=== PATIENT | female | born 1975 | race Caucasian/White ===

== ENCOUNTER 2019-01-06 11:45 | Emergency (ER) | payer MEDICAID ==
[~2019-01-06] VITALS: Ht 165.1 cm; Wt 84.4 kg
[2019-01-06 12:00] VITALS: BP 127/77
--- NOTE | 2019-01-06 13:06 | NUR ---
PATIENT PRESENTS TO ED WITH c/o vertigo worse with sudden movements; severe nausea ; denies recent injury/trauma full clear speech, ambulatory with steady gait--. DENIES N/V/D; SKIN IS PINK/WARM/DRY; AAOX4 WITH EVEN AND STEADY GAIT; LUNGS CLEAR BL; HR EVEN AND REGULAR; PT DENIES ANY FEVER, CP, SOB, OR COUGH AT THIS TIME; PATIENT STATES PAIN OF 0/10 AT THIS TIME; VSS; PATIENT POSITIONED FOR COMFORT; HOB ELEVATED; BEDRAILS UP X2; BED DOWN. ER MD MADE AWARE OF PT STATUS.
[2019-01-06] MEDS ORDERED: MECLIZINE 25 MG TAB PO ONE (13:40)
[2019-01-06] MEDS ORDERED: ONDANSETRON 4 MG ODT PO ONE (13:40)
[2019-01-06 14:54] VITALS: BP 117/76
--- NOTE | 2019-01-06 14:59 | NUR ---
Patient discharged with v/s stable. Written and verbal after care instructions given and explained. Patient alert, oriented and verbalized understanding of instructions. Ambulatory with steady gait. All questions addressed prior to discharge. ID band removed. Patient advised to follow up with PMD. Rx of MECLIZINE AND ZOFRAN given. Patient educated on indication of medication including possible reaction and side effects. Opportunity to ask questions provided and answered.
== END 2019-01-06 14:59 | disposition home or self-care (01) ==
LOC: MED 11:45
DX: R42 Dizziness and giddiness (principal); Z98.890 Other specified postprocedural states
CPT/HCPCS: 81002; 81025; 99283; J8597; Q0162

== ENCOUNTER 2019-05-04 13:59 | Emergency (ER) | payer MEDICAID, OTHER ==
[~2019-05-04] VITALS: Ht 165.1 cm; Wt 83.9 kg
[2019-05-04 14:04] VITALS: BP 122/84
--- NOTE | 2019-05-04 14:20 | NUR ---
DR FULLER AT BEDSIDE
--- NOTE | 2019-05-04 14:25 | NUR ---
44 Y FEMALE C/O LOWER BACK PAIN, DYSURIA, VOMITING AND DIARRHEA SINCE YESTERDAY. REPORTS 3 EPISODES OF EMESIS. PT STATES SHE CAN'T KEEP ANY FOOD OR WATER DOWN. LAST BM TODAY. PAIN /10. BOWEL SOUNDS ACTIVE IN ALL 4 QUADRANTS. ABDOMEN SOFT AND ROUND. VSS AT THIS TIME. PT AA0X4. BED IS DOWN, LOCKED, BED RAIL X 1, ERMD TO SEE PT. HX OF KINDNEY DISEASE NO MEDS.
--- NOTE | 2019-05-04 14:31 | NUR ---
LAB AT BEDSIDE
[2019-05-04] MEDS ORDERED: cefTRIAXone 1,000 MG VIAL ONE (14:43)
--- NOTE | 2019-05-04 14:50 | NUR ---
22 G L FOREARM INSERTED. ROCEPHIN STARTED
[2019-05-04 14:51] LABS: APPEARANCE,URINE SL CLOUDY (CLEAR); BILIRUBIN,URINE NEGATIVE (NEGATIVE); BLOOD, URINE TRACE-I (NEGATIVE); COLOR,URINE YELLOW (YELLOW); LEUKOCYTE ESTERASE ,URINE NEGATIVE (NEGATIVE); NITRITE, URINE NEGATIVE (NEGATIVE); PH,URINE 7.5 (5.0-9.0); UGLUCOSE NEGATIVE (NEGATIVE)
[2019-05-04 14:58] LABS: ANION GAP 9.7 (8-16); CARBON DIOXIDE 30.1 mmol/L (21-32); CREATININE 0.6 mg/dL (0.6-1.3); POTASSIUM 3.8 mmol/L (3.5-5.1)
[2019-05-04 15:00] LABS: RBC,URINE 0-5 /HPF (0-5); WBC,URINE 0-5 /HPF (0-5)
[2019-05-04 15:04] LABS: ALBUMIN 3.7 g/dL (3.4-5.0); TOTAL BILIRUBIN 0.2 mg/dL (0.0-1.0)
[2019-05-04 16:19] VITALS: BP 126/80
--- NOTE | 2019-05-04 16:19 | NUR ---
Patient discharged with v/s stable. Written and verbal after care instructions given and explained. Patient alert, oriented and verbalized understanding of instructions. Ambulatory with steady gait. All questions addressed prior to discharge. ID band removed. Patient advised to follow up with PMD. Rx of ZOFRAN, CEPHALEXIN given. Patient educated on indication of medication including possible reaction and side effects. Opportunity to ask questions provided and answered. PAIN 3/10 AT DISCHARGE.
[2019-05-04 17:27] LABS: HEMATOCRIT 28.3 % (36-48); HEMOGLOBIN 8.6 g/dL (12.0-16.0); RED BLOOD CELL COUNT(AUTO) 4.22 MIL/uL (4.20-5.40)
[2019-05-04 17:28] LABS: EOSINOPHILS # (AUTO) 0.1 K/uL (0-0.4); EOSINOPHILS % (AUTO) 1.1 % (0.0-4.0); LYMPHOCYTES # (AUTO) 1.8 K/uL (2.5-16.5); MEAN CORPUSCULAR HGB CONC 31 g/dL (33-37); MONOCYTES # (AUTO) 0.7 K/uL (0.8-1.0); MONOCYTES % (AUTO) 7.7 % (1.7-9.3); NEUTROPHILS % (AUTO) 70.2 % (42.2-75.2); PLATELET COUNT (AUTO) 407 K/uL (140-450); RED CELL DISTRIBUTION WIDTH 19.8 % (11.6-13.7)
[2019-05-04 17:29] LABS: MEAN CORPUSCULAR HEMOGLOBIN 20 pg (27-31); WHITE BLOOD COUNT (AUTO) 8.6 K/uL (4.8-10.8)
== END 2019-05-04 16:19 | disposition home or self-care (01) ==
LOC: MED 13:59
DX: N12 Tubulo-interstitial nephritis, not specified as acute or chronic (principal); Q61.3 Polycystic kidney, unspecified
CPT/HCPCS: 36415; 80053; 81001; 81025; 83605; 85025; 87040; 87086; 96365; 99283; J0696; J7060

== ENCOUNTER 2019-08-25 08:37 | Emergency (ER) | payer OTHER ==
[~2019-08-25] VITALS: Ht 165.1 cm; Wt 80.7 kg
[2019-08-25 08:44] VITALS: BP 132/85
--- NOTE | 2019-08-25 08:44 | NUR ---
Patient ambulated to bed 8. RN evaluating patient at bedside.
--- NOTE | 2019-08-25 08:56 | NUR ---
Dr. Alcantar evaluating patient at bedside.
--- NOTE | 2019-08-25 09:20 | NUR ---
HOSPITAL GOWN WAS OFFERED AND ENCOURAGED PT TO CHANGE IT. PT IS WAITING FOR US. QUIETLY.
[2019-08-25 09:38] LABS: BASOPHILS % (AUTO) 0.6 % (0.0-2.0); EOSINOPHILS # (AUTO) 0.1 K/uL (0-0.4); EOSINOPHILS % (AUTO) 2.2 % (0.0-4.0); HEMATOCRIT 33.1 % (36-48); HEMOGLOBIN 10.2 g/dL (12.0-16.0); LYMPHOCYTES # (AUTO) 1.5 K/uL (2.5-16.5); LYMPHOCYTES % (AUTO) 32.6 % (20.5-51.1); MEAN CORPUSCULAR HEMOGLOBIN 23 pg (27-31); MEAN CORPUSCULAR HGB CONC 31 g/dL (33-37); MEAN CORPUSCULAR VOLUME 73.7 fL (80-94); MONOCYTES # (AUTO) 0.2 K/uL (0.8-1.0); MONOCYTES % (AUTO) 4.3 % (1.7-9.3); NEUTROPHILS # (AUTO) 2.8 K/uL (1.8-7.7); NEUTROPHILS % (AUTO) 60.3 % (42.2-75.2); PLATELET COUNT (AUTO) 274 K/uL (140-450); RED BLOOD CELL COUNT(AUTO) 4.49 MIL/uL (4.20-5.40); RED CELL DISTRIBUTION WIDTH 19.6 % (11.6-13.7); WHITE BLOOD COUNT (AUTO) 4.6 K/uL (4.8-10.8)
[2019-08-25 09:45] LABS: ANION GAP 8.7 (8-16); CARBON DIOXIDE 28.1 mmol/L (21-32); CREATININE 0.6 mg/dL (0.6-1.3); POTASSIUM 3.8 mmol/L (3.5-5.1)
[2019-08-25 09:49] LABS: APPEARANCE,URINE HAZY (CLEAR); BILIRUBIN,URINE NEGATIVE (NEGATIVE); BLOOD, URINE 2+ (NEGATIVE); COLOR,URINE YELLOW (YELLOW); LEUKOCYTE ESTERASE ,URINE NEGATIVE (NEGATIVE); NITRITE, URINE NEGATIVE (NEGATIVE); PH,URINE 7.5 (5.0-9.0); UGLUCOSE NEGATIVE (NEGATIVE)
[2019-08-25 09:51] LABS: ALBUMIN 3.6 g/dL (3.4-5.0); TOTAL BILIRUBIN 0.3 mg/dL (0.0-1.0)
[2019-08-25 10:01] LABS: FINE GRANULAR CASTS,URINE 0-10 /LPF (None Seen); RBC,URINE 0-5 /HPF (0-5); WBC,URINE 0-5 /HPF (0-5)
--- NOTE | 2019-08-25 11:52 | NUR ---
Patient discharged with v/s stable. Written and verbal after care instructions given and explained. Patient alert, oriented and verbalized understanding of instructions. Ambulatory with steady gait. All questions addressed prior to discharge. ID band removed. Patient advised to follow up with PMD. Rx of KFLEX given. Patient educated on indication of medication including possible reaction and side effects. Opportunity to ask questions provided and answered.
[2019-08-25 11:54] VITALS: BP 132/75
== END 2019-08-25 11:52 | disposition home or self-care (01) ==
LOC: MED 08:37
DX: N39.0 Urinary tract infection, site not specified (principal); R03.0 Elevated blood-pressure reading, without diagnosis of hypertension; D64.9 Anemia, unspecified; Z98.890 Other specified postprocedural states
CPT/HCPCS: 36415; 76770; 80053; 81001; 81025; 85025; 87086; 99284; Q0092

== ENCOUNTER 2020-03-24 23:50 | Emergency (ER) | payer OTHER ==
[~2020-03-24] VITALS: Ht 165.1 cm; Wt 81.6 kg
[2020-03-24 23:57] VITALS: BP 152/87
[2020-03-25 01:17] LABS: APPEARANCE,URINE SL CLOUDY (CLEAR); BILIRUBIN,URINE NEGATIVE (NEGATIVE); BLOOD, URINE 2+ (NEGATIVE); COLOR,URINE YELLOW (YELLOW); LEUKOCYTE ESTERASE ,URINE NEGATIVE (NEGATIVE); NITRITE, URINE NEGATIVE (NEGATIVE); PH,URINE 5.5 (5.0-9.0); UGLUCOSE NEGATIVE (NEGATIVE)
--- NOTE | 2020-03-25 01:17 | NUR ---
PT HAS FLANK PAIN X 2 DAYS WITH INCREASE TONIGHT, 04/27. HX OF POLYCYSTIC KIDNEY DISEASE. PAIN RADIATING IN TO LUQ, DENIES N/V. BED IN LOWEST POSITION AND SIDERAIL UP X 1 NKA NO MEDS MED HX - POLYCYSTIC KIDNSY DISEASE
[2020-03-25 01:41] LABS: WBC,URINE 0-5 /HPF (0-5)
[2020-03-25 01:44] VITALS: BP 152/87
--- NOTE | 2020-03-25 01:46 | NUR ---
Patient discharged with v/s stable. Written and verbal after care instructions given and explained. Patient alert, oriented and verbalized understanding of instructions. Ambulatory with steady gait. All questions addressed prior to discharge. ID band removed. Patient advised to follow up with PMD. Rx of KEFLEX AND PHENAZOPYDRINE given. Patient educated on indication of medication including possible reaction and side effects. Opportunity to ask questions provided and answered.
== END 2020-03-25 01:46 | disposition home or self-care (01) ==
LOC: MED 23:50
DX: N39.0 Urinary tract infection, site not specified (principal); Z98.890 Other specified postprocedural states
CPT/HCPCS: 81001; 81002; 81025; 87086; 99283

== ENCOUNTER 2020-05-11 23:31 | Emergency (ER) | payer OTHER ==
[~2020-05-11] VITALS: Ht 165.1 cm; Wt 79.8 kg
[2020-05-11 23:38] VITALS: BP 128/80
[2020-05-11] MEDS ORDERED: KETOROLAC 60 MG/2 ML VIAL IM ONE (23:45)
[2020-05-12 00:07] VITALS: BP 128/80
== END 2020-05-12 00:07 | disposition home or self-care (01) ==
LOC: MED 23:31
DX: I88.9 Nonspecific lymphadenitis, unspecified (principal); Z87.448 Personal history of other diseases of urinary system
CPT/HCPCS: 81002; 81025; 96372; 99283; J1885

== ENCOUNTER 2020-08-02 18:44 | Emergency (ER) | payer OTHER ==
[~2020-08-02] VITALS: Ht 165.1 cm; Wt 80.7 kg
[2020-08-02 18:49] VITALS: BP 121/86
--- NOTE | 2020-08-02 19:00 | NUR ---
45 year old female coming in flank pain x 2 days. states that the flank pain is on and off. reports more pain on left region of the flank. reports slight discomfort or hesitancy when urinating. denies any other s/sx. denies any injury or trauma. awaiting MSE. pmhx: polycystic kidney disease. aliyah
--- NOTE | 2020-08-02 19:00 | NUR ---
ambulated to bed 12 with steady gait.
[2020-08-02 19:57] LABS: BASOPHILS % (AUTO) 0.8 % (0.0-2.0); EOSINOPHILS # (AUTO) 0.2 K/uL (0-0.4); EOSINOPHILS % (AUTO) 2.4 % (0.0-4.0); HEMATOCRIT 38.1 % (36-48); HEMOGLOBIN 12.6 g/dL (12.0-16.0); LYMPHOCYTES # (AUTO) 2.3 K/uL (2.5-16.5); LYMPHOCYTES % (AUTO) 36.4 % (20.5-51.1); MEAN CORPUSCULAR HEMOGLOBIN 29 pg (27-31); MEAN CORPUSCULAR HGB CONC 33 g/dL (33-37); MEAN CORPUSCULAR VOLUME 88.5 fL (80-94); MONOCYTES # (AUTO) 0.5 K/uL (0.8-1.0); MONOCYTES % (AUTO) 7.7 % (1.7-9.3); NEUTROPHILS # (AUTO) 3.3 K/uL (1.8-7.7); NEUTROPHILS % (AUTO) 52.7 % (42.2-75.2); PLATELET COUNT (AUTO) 218 K/uL (140-450); RED CELL DISTRIBUTION WIDTH 15.2 % (11.6-13.7); WHITE BLOOD COUNT (AUTO) 6.2 K/uL (4.8-10.8)
[2020-08-02 20:12] LABS: ALBUMIN 3.5 g/dL (3.4-5.0); ANION GAP 12.1 (8-16); CARBON DIOXIDE 26.5 mmol/L (21-32); POTASSIUM 3.6 mmol/L (3.5-5.1); TOTAL BILIRUBIN 0.1 mg/dL (0.0-1.0)
--- NOTE | 2020-08-02 20:48 | NUR ---
PA MAICO WITH PT
[2020-08-02 21:15] VITALS: BP 121/86
--- NOTE | 2020-08-02 21:15 | NUR ---
Patient discharged with v/s stable. Written and verbal after care instructions given and explained. Patient alert, oriented and verbalized understanding of instructions. Ambulatory with steady gait. All questions addressed prior to discharge. ID band removed. Patient advised to follow up with PMD. Rx of ACETAMINOPHEN, AND NITROFURANTOIN given. Patient educated on indication of medication including possible reaction and side effects. Opportunity to ask questions provided and answered.
--- NOTE | 2020-08-02 21:15 | NUR ---
IV removed, catheter intact and site benign. Applied folded 4x4 gauze and tape to stop bleeding.
== END 2020-08-02 21:15 | disposition home or self-care (01) ==
LOC: MED 18:44
DX: M54.9 Dorsalgia, unspecified (principal); R30.0 Dysuria; R03.0 Elevated blood-pressure reading, without diagnosis of hypertension
CPT/HCPCS: 36415; 80053; 81002; 81025; 85025; 87086; 99283

== ENCOUNTER 2021-02-21 14:10 | Emergency (ER) | payer BC, OTHER ==
[~2021-02-21] VITALS: Ht 165.1 cm; Wt 77.1 kg
[2021-02-21 14:17] VITALS: BP 140/83
--- NOTE | 2021-02-21 14:40 | NUR ---
PATIENT AMBULATED TO BED 05
--- NOTE | 2021-02-21 15:00 | NUR ---
45 YEAR OLD FEMALE COMPLAINS OF PAINFUL URINATION X 3 DAYS. PT STATES THAT SHE HAS LOWER ABDOMINAL PAIN THAT RADIATES TO LOWER BACK. PT DENIES BLOOD IN URINE. PT AOX4, BREATHING EVEN AND UNLABORED, SKIN WARM AND DRY. BED IN LOWEST POSITION, LOCKED, BED RAIL UPX1. PMH - POLYCYSTIC KIDNEY DISEASE ALLERGIES - NKA
[2021-02-21 15:06] LABS: APPEARANCE,URINE CLEAR (CLEAR); BILIRUBIN,URINE NEGATIVE (NEGATIVE); BLOOD, URINE 2+ (NEGATIVE); COLOR,URINE YELLOW (YELLOW); LEUKOCYTE ESTERASE ,URINE NEGATIVE (NEGATIVE); NITRITE, URINE NEGATIVE (NEGATIVE); UGLUCOSE NEGATIVE (NEGATIVE)
[2021-02-21 15:07] LABS: BASOPHILS % (AUTO) 0.4 % (0.0-2.0); EOSINOPHILS # (AUTO) 0.1 K/uL (0-0.4); HEMATOCRIT 37.6 % (36-48); HEMOGLOBIN 12.5 g/dL (12.0-16.0); LYMPHOCYTES # (AUTO) 1.8 K/uL (2.5-16.5); LYMPHOCYTES % (AUTO) 31.7 % (20.5-51.1); MEAN CORPUSCULAR HEMOGLOBIN 30 pg (27-31); MEAN CORPUSCULAR HGB CONC 33 g/dL (33-37); MEAN CORPUSCULAR VOLUME 89.3 fL (80-94); MONOCYTES # (AUTO) 0.5 K/uL (0.8-1.0); MONOCYTES % (AUTO) 8.4 % (1.7-9.3); NEUTROPHILS # (AUTO) 3.2 K/uL (1.8-7.7); NEUTROPHILS % (AUTO) 57.5 % (42.2-75.2); PLATELET COUNT (AUTO) 228 K/uL (140-450); RED BLOOD CELL COUNT(AUTO) 4.22 MIL/uL (4.20-5.40); WHITE BLOOD COUNT (AUTO) 5.6 K/uL (4.8-10.8)
[2021-02-21 15:13] LABS: RBC,URINE 11-20 (MOD) /HPF (0-5); WBC,URINE 0-5 /HPF (0-5)
[2021-02-21 15:18] LABS: ALBUMIN 3.5 g/dL (3.4-5.0); ANION GAP 7.6 (8-16); CARBON DIOXIDE 31.5 mmol/L (21-32); CREATININE 0.6 mg/dL (0.6-1.3); POTASSIUM 4.1 mmol/L (3.5-5.1); TOTAL BILIRUBIN 0.2 mg/dL (0.0-1.0)
[2021-02-21] MEDS ORDERED: ONDA4TAB PO (16:19)
[2021-02-21] MEDS ORDERED: IBUP-2213 PO (16:19)
[2021-02-21] MEDS ORDERED: ACET-9527 PO (16:19)
[2021-02-21 16:40] VITALS: BP 140/83
--- NOTE | 2021-02-21 16:40 | NUR ---
Patient discharged with v/s stable. Written and verbal after care instructions about polycystic kidney disease, flank pain given and explained. Patient alert, oriented and verbalized understanding of instructions. Ambulatory with steady gait. All questions addressed prior to discharge. ID band removed. Patient advised to follow up with PMD. Rx of hydrocodone, ibuprofen, zofran given. Patient educated on indication of medication including possible reaction and side effects. Pt understands not to drive on hydrocodone. Opportunity to ask questions provided and answered.
== END 2021-02-21 16:40 | disposition home or self-care (01) ==
LOC: MED 14:10
DX: Q61.3 Polycystic kidney, unspecified (principal); R31.9 Hematuria, unspecified; R10.9 Unspecified abdominal pain; R03.0 Elevated blood-pressure reading, without diagnosis of hypertension; Z79.899 Other long term (current) drug therapy
CPT/HCPCS: 36415; 80053; 81001; 81025; 85025; 99284

== ENCOUNTER 2021-09-26 21:34 | Emergency (ER) | payer OTHER ==
[~2021-09-26] VITALS: Ht 165.1 cm; Wt 79.8 kg
[~2021-09-26 21:34] MED LIST: ACET-9527 PO; IBUP-2213 PO; ONDA4TAB PO
[2021-09-26 21:47] VITALS: BP 136/65
--- NOTE | 2021-09-26 21:55 | NUR ---
TO LOBBY FOLLOWING TRIAGE
--- NOTE | 2021-09-26 22:20 | NUR ---
PT TAKEN TO BED #5
[2021-09-26 22:57] LABS: BASOPHILS % (AUTO) 0.4 % (0.0-2.0); EOSINOPHILS # (AUTO) 0.2 K/uL (0-0.4); HEMATOCRIT 34.9 % (36-48); HEMOGLOBIN 11.5 g/dL (12.0-16.0); LYMPHOCYTES # (AUTO) 2.1 K/uL (2.5-16.5); LYMPHOCYTES % (AUTO) 31.7 % (20.5-51.1); MEAN CORPUSCULAR HEMOGLOBIN 27 pg (27-31); MEAN CORPUSCULAR HGB CONC 33 g/dL (33-37); MEAN CORPUSCULAR VOLUME 82.6 fL (80-94); MONOCYTES # (AUTO) 0.5 K/uL (0.8-1.0); NEUTROPHILS # (AUTO) 3.8 K/uL (1.8-7.7); NEUTROPHILS % (AUTO) 56.9 % (42.2-75.2); PLATELET COUNT (AUTO) 257 K/uL (140-450); RED BLOOD CELL COUNT(AUTO) 4.23 MIL/uL (4.20-5.40); RED CELL DISTRIBUTION WIDTH 15.5 % (11.6-13.7); WHITE BLOOD COUNT (AUTO) 6.6 K/uL (4.8-10.8)
[2021-09-26 23:13] LABS: ALBUMIN 3.6 g/dL (3.4-5.0); ANION GAP 11.7 (8-16); CREATININE 0.7 mg/dL (0.6-1.3); POTASSIUM 3.7 mmol/L (3.5-5.1); TOTAL BILIRUBIN 0.2 mg/dL (0.0-1.0)
--- NOTE | 2021-09-27 00:33 | NUR ---
URINE WALKED OVER TO LAB AT THIS TIME.
--- NOTE | 2021-09-27 00:44 | NUR ---
PATIENT CLEARED FOR DISHCARGE AT THIS TIME. PATIENT HAS NO COMPLAINTS OF PAIN OR DISCOMFORT, ADVISED TO FOLLOW UP WITH PCP AND RETURN IF CONDITION WORSES. DR HANNA PROVIDED BEDSIDE DISCHARGE TEACHING.
[2021-09-27 00:45] VITALS: BP 136/65
[2021-09-27 01:06] LABS: APPEARANCE,URINE SL CLOUDY (CLEAR); BILIRUBIN,URINE NEGATIVE (NEGATIVE); BLOOD, URINE 3+ (NEGATIVE); COLOR,URINE YELLOW (YELLOW); LEUKOCYTE ESTERASE ,URINE NEGATIVE (NEGATIVE); NITRITE, URINE NEGATIVE (NEGATIVE); UGLUCOSE NEGATIVE (NEGATIVE)
[2021-09-27 01:22] LABS: RBC,URINE 0-5 /HPF (0-5); WBC,URINE 0-5 /HPF (0-5)
== END 2021-09-27 00:44 | disposition home or self-care (01) ==
LOC: MED 21:34
DX: B34.9 Viral infection, unspecified (principal)
CPT/HCPCS: 36415; 80053; 81001; 81025; 82150; 83690; 85025; 87086; 99283

== ENCOUNTER 2021-12-22 23:32 | Emergency (ER) | payer OTHER ==
[~2021-12-22] VITALS: Ht 165.1 cm; Wt 79.4 kg
[2021-12-22 23:46] VITALS: BP 133/85
--- NOTE | 2021-12-22 23:46 | NUR ---
TO BED AMBULATORY
[2021-12-22] MEDS ORDERED: KETOROLAC 30 MG/ML VIAL IVP ONE (23:55)
[2021-12-22] MEDS ORDERED: ONDANSETRON 4 MG/2 ML VIAL IVP ONE (23:55)
[2021-12-22] MEDS ORDERED: NACL 0.9% 1,000 ML IV ONE (23:55)
--- NOTE | 2021-12-22 23:55 | NUR ---
ERMD at bedside for medical evaluation.
--- NOTE | 2021-12-23 00:05 | NUR ---
SEE COMPLETE ASSESSMENT.
[2021-12-23 00:16] LABS: BASOPHILS % (AUTO) 0.7 % (0.0-2.0); EOSINOPHILS # (AUTO) 0.2 K/uL (0-0.4); EOSINOPHILS % (AUTO) 3.6 % (0.0-4.0); LYMPHOCYTES # (AUTO) 2.5 K/uL (2.5-16.5); LYMPHOCYTES % (AUTO) 42.9 % (20.5-51.1); MEAN CORPUSCULAR HEMOGLOBIN 27 pg (27-31); MEAN CORPUSCULAR HGB CONC 32 g/dL (33-37); MEAN CORPUSCULAR VOLUME 82.8 fL (80-94); MONOCYTES # (AUTO) 0.4 K/uL (0.8-1.0); MONOCYTES % (AUTO) 7.6 % (1.7-9.3); NEUTROPHILS # (AUTO) 2.6 K/uL (1.8-7.7); NEUTROPHILS % (AUTO) 45.2 % (42.2-75.2); PLATELET COUNT (AUTO) 244 K/uL (140-450); RED CELL DISTRIBUTION WIDTH 16.3 % (11.6-13.7); WHITE BLOOD COUNT (AUTO) 5.7 K/uL (4.8-10.8)
[2021-12-23 00:17] LABS: APPEARANCE,URINE CLEAR (CLEAR); BILIRUBIN,URINE NEGATIVE (NEGATIVE); BLOOD, URINE 3+ (NEGATIVE); COLOR,URINE YELLOW (YELLOW); LEUKOCYTE ESTERASE ,URINE NEGATIVE (NEGATIVE); NITRITE, URINE NEGATIVE (NEGATIVE); PH,URINE 6.5 (5.0-9.0); UGLUCOSE NEGATIVE (NEGATIVE)
[2021-12-23] MEDS ORDERED: NACL 0.9% 1,000 ML IV ONE (00:25)
[2021-12-23 00:39] LABS: WBC,URINE 0-5 /HPF (0-5)
[2021-12-23 00:41] LABS: ALBUMIN 3.6 g/dL (3.4-5.0); ANION GAP 8.4 (8-16); CARBON DIOXIDE 29.3 mmol/L (21-32); CREATININE 0.6 mg/dL (0.6-1.3); POTASSIUM 3.7 mmol/L (3.5-5.1); TOTAL BILIRUBIN 0.1 mg/dL (0.0-1.0)
--- NOTE | 2021-12-23 01:06 | NUR ---
Patient states R flnak pain reduced from 10/10 to 2/10. Patinet able to walk to restroom with steady gait.
[2021-12-23] MEDS ORDERED: cefTRIAXone 1,000 MG VIAL ONE (03:04)
[2021-12-23] MEDS ORDERED: CEPH500C16 PO (03:21)
--- NOTE | 2021-12-23 03:48 | NUR ---
IV removed, catheter intact and site benign. Applied folded 4x4 gauze and tape to stop bleeding.
[2021-12-23 03:50] VITALS: BP 122/78
== END 2021-12-23 03:50 | disposition home or self-care (01) ==
LOC: MED 23:32
DX: N12 Tubulo-interstitial nephritis, not specified as acute or chronic (principal); Z79.2 Long term (current) use of antibiotics; Z79.899 Other long term (current) drug therapy; Z79.891 Long term (current) use of opiate analgesic; Z79.1 Long term (current) use of non-steroidal anti-inflammatories (NSAID)
CPT/HCPCS: 36415; 74176; 80053; 81001; 83690; 84703; 85025; 87086; 96365; 96375; 99284; J0696; J1885; J2405; J7030

== ENCOUNTER 2022-02-17 08:38 | Emergency (ER) | payer OTHER ==
[~2022-02-17] VITALS: Ht 165.1 cm; Wt 81.3 kg
[~2022-02-17 08:38] MED LIST changes: +CEPH500C16 PO
[2022-02-17 08:47] VITALS: BP 143/96
--- NOTE | 2022-02-17 08:55 | NUR ---
Patient ambulated to bed 11.
[2022-02-17] MEDS ORDERED: KETOROLAC 60 MG/2 ML VIAL IM ONE (09:05)
--- NOTE | 2022-02-17 09:16 | NUR ---
DR. PYLE BEDSIDE EVALUATING PT
[2022-02-17] MEDS ORDERED: IBUP-2213 PO (09:30)
[2022-02-17] MEDS ORDERED: ACET-8386 PO (09:30)
[2022-02-17 10:28] VITALS: BP 137/68
== END 2022-02-17 10:20 | disposition home or self-care (01) ==
LOC: MED 08:38
DX: R51.9 Headache, unspecified (principal); R20.2 Paresthesia of skin; M54.2 Cervicalgia; Z79.899 Other long term (current) drug therapy
CPT/HCPCS: 70450; 81002; 81025; 96372; 99284; J1885

== ENCOUNTER 2023-05-26 16:52 | Emergency (ER) | payer OTHER ==
[~2023-05-26] VITALS: Ht 165.1 cm; Wt 81.6 kg
[~2023-05-26 16:52] MED LIST changes: +ACET-8905 PO
[2023-05-26 17:17] VITALS: BP 139/96; PULSE 66; RESP 20; TEMP 97.9; O2SAT 96
[2023-05-26 18:12] LABS: BASOPHILS % (AUTO) 0.6 % (0.0-2.0); EOSINOPHILS # (AUTO) 0.1 K/uL (0-0.4); EOSINOPHILS % (AUTO) 1.8 % (0.0-4.0); HEMATOCRIT 37.1 % (36-48); HEMOGLOBIN 12.2 g/dL (12.0-16.0); LYMPHOCYTES % (AUTO) 27.1 % (20.5-51.1); MEAN CORPUSCULAR HEMOGLOBIN 29 pg (27-31); MEAN CORPUSCULAR HGB CONC 33 g/dL (33-37); MEAN CORPUSCULAR VOLUME 89.1 fL (80-94); MONOCYTES # (AUTO) 0.5 K/uL (0.8-1.0); MONOCYTES % (AUTO) 6.8 % (1.7-9.3); NEUTROPHILS # (AUTO) 4.7 K/uL (1.8-7.7); NEUTROPHILS % (AUTO) 63.7 % (42.2-75.2); PLATELET COUNT (AUTO) 233 K/uL (140-450); RED BLOOD CELL COUNT(AUTO) 4.16 MIL/uL (4.20-5.40); RED CELL DISTRIBUTION WIDTH 13.8 % (11.6-13.7); WHITE BLOOD COUNT (AUTO) 7.4 K/uL (4.8-10.8)
[2023-05-26 18:18] LABS: APPEARANCE,URINE CLEAR (CLEAR); BILIRUBIN,URINE NEGATIVE (NEGATIVE); BLOOD, URINE 2+ (NEGATIVE); COLOR,URINE YELLOW (YELLOW); LEUKOCYTE ESTERASE ,URINE NEGATIVE (NEGATIVE); NITRITE, URINE NEGATIVE (NEGATIVE); UGLUCOSE NEGATIVE (NEGATIVE)
[2023-05-26 18:34] LABS: ALBUMIN 3.6 g/dL (3.4-5.0); ANION GAP 9.6 (8-16); CARBON DIOXIDE 29.4 mmol/L (21-32); CREATININE 0.9 mg/dL (0.6-1.3); TOTAL BILIRUBIN 0.2 mg/dL (0.0-1.0)
[2023-05-26] MEDS ORDERED: KETOROLAC 30 MG/ML VIAL IM SCH (18:50)
[2023-05-26 18:53] LABS: TRICHOMONAS,URINE None Seen /HPF (None Seen); YEAST,URINE None Seen /HPF (None Seen)
--- NOTE | 2023-05-26 19:04 | NUR ---
PT AMBULATED TO BED 7
[2023-05-26] MEDS ORDERED: ACET-8905 PO (20:26)
[2023-05-26] MEDS ORDERED: IBUP-2213 PO (20:26)
[2023-05-26] MEDS ORDERED: LID5T TP (20:26)
[2023-05-26 21:02] VITALS: BP 139/96; PULSE 66; RESP 20; TEMP 97.9; O2SAT 96
--- NOTE | 2023-05-26 21:04 | NUR ---
Patient discharged with v/s stable. Written and verbal after care instructions given and explained. Patient alert, oriented and verbalized understanding of instructions. Ambulatory with steady gait. All questions addressed prior to discharge. ID band removed. Patient advised to follow up with PMD. Rx of Hydrocodone, Ibuprofen, lidocaine given. Patient educated on indication of medication including possible reaction and side effects. Opportunity to ask questions provided and answered.
== END 2023-05-26 21:04 | disposition home or self-care (01) ==
LOC: MED 16:52
DX: M54.50 Low back pain, unspecified (principal); R31.9 Hematuria, unspecified; R03.0 Elevated blood-pressure reading, without diagnosis of hypertension; Q61.3 Polycystic kidney, unspecified; Z79.899 Other long term (current) drug therapy
CPT/HCPCS: 36415; 80053; 81001; 81025; 85025; 96372; 99283; J1885

== ENCOUNTER 2023-10-30 14:09 | Emergency (ER) | payer OTHER ==
[~2023-10-30] VITALS: Ht 165.1 cm; Wt 78.5 kg
[~2023-10-30 14:09] MED LIST changes: +LID5T TP
[2023-10-30 14:28] VITALS: BP 125/83; PULSE 79; RESP 18; TEMP 100.9; O2SAT 25
[2023-10-30] MEDS ORDERED: ACETAMINOPHEN EXTRA STRENGTH 500 MG TAB PO ONE (15:00)
[2023-10-30 16:15] LABS: BILIRUBIN,URINE NEGATIVE (NEGATIVE); BLOOD, URINE 3+ (NEGATIVE); COLOR,URINE YELLOW (YELLOW); LEUKOCYTE ESTERASE ,URINE NEGATIVE (NEGATIVE); NITRITE, URINE NEGATIVE (NEGATIVE); PROTEIN,URINE NEGATIVE (NEGATIVE); UGLUCOSE NEGATIVE (NEGATIVE); UROBILINOGEN,URINE 0.2 EU/dL (0.2 - 1)
[2023-10-30 16:17] LABS: APPEARANCE,URINE SLIGHTLY CLOUDY (CLEAR)
[2023-10-30 16:18] LABS: BACTERIA,URINE 10-30 (MOD) /HPF (None Seen); RBC,URINE 11-20 (MOD) /HPF (0-5); SQUAMOUS EPITHELIAL CELL,UR 4-10 (MOD) /LPF (0-3 (FEW)); WBC,URINE 0-5 /HPF (0-5)
[2023-10-30 16:49] LABS: FLU A ANTIGEN POSITIVE (NEGATIVE); FLU B ANTIGEN NEGATIVE (NEGATIVE)
[2023-10-30] MEDS ORDERED: CEPH250C16 PO (16:55)
[2023-10-30] MEDS ORDERED: TAM75 PO (16:55)
[2023-10-30 17:01] VITALS: BP 121/81; PULSE 71; RESP 17; TEMP 98.7; O2SAT 98
== END 2023-10-30 17:03 | disposition home or self-care (01) ==
LOC: MED 14:09
DX: N30.00 Acute cystitis without hematuria (principal); J10.1 Influenza due to other identified influenza virus with other respiratory manifestations; Z20.822 Contact with and (suspected) exposure to COVID-19; Z79.899 Other long term (current) drug therapy; Z79.2 Long term (current) use of antibiotics; Z79.1 Long term (current) use of non-steroidal anti-inflammatories (NSAID)
CPT/HCPCS: 81001; 81025; 87086; 99283

== ENCOUNTER 2024-01-21 09:26 | Emergency (ER) | payer OTHER ==
[~2024-01-21] VITALS: Ht 165.1 cm; Wt 75.7 kg
[~2024-01-21 09:26] MED LIST changes: +CEPH250C16 PO; +TAM75 PO
[2024-01-21 09:43] VITALS: BP 144/92; PULSE 70; RESP 16; TEMP 98.4; O2SAT 99
[2024-01-21] MEDS ORDERED: SODI1PKT7 NS (11:05)
[2024-01-21] MEDS ORDERED: LORA1T1237 PO (11:05)
[2024-01-21] MEDS ORDERED: FLONAS NS (11:05)
[2024-01-21 11:09] VITALS: BP 130/81; PULSE 70; RESP 16; TEMP 98.4; O2SAT 99
== END 2024-01-21 11:14 | disposition home or self-care (01) ==
LOC: MED 09:26
DX: J32.9 Chronic sinusitis, unspecified (principal); Z79.899 Other long term (current) drug therapy
CPT/HCPCS: 99282

== ENCOUNTER 2024-03-31 18:10 | Emergency (ER) | payer OTHER ==
[~2024-03-31] VITALS: Ht 165.1 cm; Wt 74.4 kg
[~2024-03-31 18:10] MED LIST changes: +FLONAS NS; +LORA1T1237 PO; +SODI1PKT7 NS
[2024-03-31 18:22] VITALS: BP 133/77; PULSE 63; RESP 19; TEMP 98.9; O2SAT 99
[2024-03-31] MEDS: KETOROLAC 30 MG/ML VIAL IM ONE (19:38)
[2024-03-31 19:53] LABS: BASOPHILS % (AUTO) 0.3 % (0.0-2.0); EOSINOPHILS # (AUTO) 0.1 K/uL (0-0.4); EOSINOPHILS % (AUTO) 2.6 % (0.0-4.0); HEMATOCRIT 35.2 % (36-48); HEMOGLOBIN 11.4 g/dL (12.0-16.0); LYMPHOCYTES # (AUTO) 2.2 K/uL (2.5-16.5); LYMPHOCYTES % (AUTO) 41.5 % (20.5-51.1); MEAN CORPUSCULAR HEMOGLOBIN 27 pg (27-31); MEAN CORPUSCULAR HGB CONC 33 g/dL (33-37); MONOCYTES # (AUTO) 0.4 K/uL (0.8-1.0); MONOCYTES % (AUTO) 8.2 % (1.7-9.3); NEUTROPHILS # (AUTO) 2.6 K/uL (1.8-7.7); NEUTROPHILS % (AUTO) 47.4 % (42.2-75.2); PLATELET COUNT (AUTO) 226 K/uL (140-450); RED BLOOD CELL COUNT(AUTO) 4.19 MIL/uL (4.20-5.40); WHITE BLOOD COUNT (AUTO) 5.4 K/uL (4.8-10.8)
[2024-03-31 20:29] LABS: APPEARANCE,URINE CLEAR (CLEAR); BILIRUBIN,URINE NEGATIVE (NEGATIVE); BLOOD, URINE TRACE-I (NEGATIVE); COLOR,URINE YELLOW (YELLOW); LEUKOCYTE ESTERASE ,URINE NEGATIVE (NEGATIVE); NITRITE, URINE NEGATIVE (NEGATIVE); PROTEIN,URINE NEGATIVE (NEGATIVE); UGLUCOSE NEGATIVE (NEGATIVE); UROBILINOGEN,URINE 0.2 EU/dL (0.2 - 1)
[2024-03-31 20:29] LABS: ANION GAP 8.5 (8-16); CARBON DIOXIDE 31.8 mmol/L (21-32); CREATININE 0.8 mg/dL (0.6-1.3); POTASSIUM 3.3 mmol/L (3.5-5.1)
[2024-03-31] MEDS ORDERED: IBUP-1842 PO (21:59)
== END 2024-03-31 22:25 | disposition home or self-care (01) ==
LOC: MED 18:10
DX: R10.9 Unspecified abdominal pain (principal); R35.0 Frequency of micturition; R33.9 Retention of urine, unspecified; N28.9 Disorder of kidney and ureter, unspecified; Z79.899 Other long term (current) drug therapy
CPT/HCPCS: 36415; 74176; 80048; 81003; 81025; 83690; 85025; 96372; 99285; J1885